=== PATIENT | female | born 1980 | race Caucasian/White ===

== ENCOUNTER → 2020-11-02 | Outpatient (CLI) | payer BC, OTHER ==
[~2020-11-02] MED LIST: AUGMENTIN 875-1 EACH PO; PREDNISONE 10 M10 MG PO
== END ==
LOC: HEART 5 08:00
DX: R42 Dizziness and giddiness (principal); I51.7 Cardiomegaly; I34.0 Nonrheumatic mitral (valve) insufficiency
CPT/HCPCS: 93306

== ENCOUNTER → 2021-06-12 | Outpatient (CLI) | payer BC | LOC: RAD 16:38 | DX: J18.9 Pneumonia, unspecified organism (principal) | CPT/HCPCS: 71046 ==

== ENCOUNTER → 2021-08-29 | Outpatient (CLI) | payer BC | LOC: RAD 16:04 | DX: M53.3 Sacrococcygeal disorders, not elsewhere classified (principal); M54.50 Low back pain, unspecified; M47.816 Spondylosis without myelopathy or radiculopathy, lumbar region | CPT/HCPCS: 72110; 72202 ==

== ENCOUNTER 2021-09-29 17:01 | Inpatient (IN) | payer BC ==
[~2021-09-29] VITALS: Ht 170.2 cm; Wt 145.1 kg
[2021-09-29 18:50] LABS: HEMOGLOBIN 12.3 gm/dl (12.3-15.3); RED BLOOD COUNT 4.87 M/UL (4.00-5.10); WHITE BLOOD COUNT 4.2 K/UL (4.5-11.0)
[2021-09-29 19:19] LABS: BUN/CREATININE RATIO 12 (0-10)
[2021-09-30 07:13] LABS: HEMOGLOBIN 11.5 gm/dl (12.3-15.3); RED BLOOD COUNT 4.57 M/UL (4.00-5.10)
[2021-09-30 08:35] LABS: BUN/CREATININE RATIO 14 (0-10)
[2021-09-30] MEDS ORDERED: ALBUTEROL2.5 MG/3 M INH (10:27)
[2021-09-30] MEDS ORDERED: PROAIR HFA8.5 GM INH (10:27)
[2021-10-02 05:55] LABS: BUN/CREATININE RATIO 20 (0-10)
--- NOTE | 2021-10-02 14:39 | NUR ---
PT'S BEEN OFF HER OXYGEN OVER AN HOUR TOLERATING WELL. SATS 90 TO 93%
[2021-10-02] MEDS ORDERED: DECADRON6 MG PO (15:42)
== END 2021-10-02 19:17 | disposition home or self-care (01) | DRG 177 ==
LOC: ER1 17:01 → MED SURG 4 20:17 → CDU 20:17 → MED SURG 4 21:53
PROVIDERS: Emergency Medicine; Internal Medicine; ADMIT Internal Medicine
PROC: 8E0ZXY6 Isolation (ICD-10-PCS; principal; 2021-09-29)
PROC: XW033E5 Introduction of Remdesivir Anti-infective into Peripheral Vein, Percutaneous Approach, New Technology Group 5 (ICD-10-PCS; 2021-09-29)
PROC: 3E0333Z Introduction of Anti-inflammatory into Peripheral Vein, Percutaneous Approach (ICD-10-PCS; 2021-09-29)
DX: U07.1 COVID-19 (principal); J12.82 Pneumonia due to coronavirus disease 2019; J96.01 Acute respiratory failure with hypoxia; Z68.43 Body mass index [BMI] 50.0-59.9, adult; R74.01 Elevation of levels of liver transaminase levels; E66.01 Morbid (severe) obesity due to excess calories
CPT/HCPCS: 36415; 36600; 71045; 76705; 80048; 80053; 81001; 82550; 82553; 82803; 83605; 83735; 83880; 84484; 85025; 85379; 87040; 87086; 93005; 96374; 99285; J0248; J0456; J1100; J1650; J2405; J7030

== ENCOUNTER 2021-10-10 23:06 | Emergency (ER) | payer BC ==
[~2021-10-10 23:06] MED LIST changes: +ALBUTEROL2.5 MG/3 M INH; +DECADRON6 MG PO; +PROAIR HFA8.5 GM INH
[2021-10-11 01:05] LABS: HEMOGLOBIN 13.6 gm/dl (12.3-15.3); RED BLOOD COUNT 5.11 M/UL (4.00-5.10); WHITE BLOOD COUNT 14.4 K/UL (4.5-11.0)
[2021-10-11 02:01] LABS: BUN/CREATININE RATIO 23 (0-10)
[2021-10-11] MEDS ORDERED: OMNICEF 300 MG300 MG PO (05:45)
== END 2021-10-11 05:55 | disposition home or self-care (01) ==
LOC: ER1 23:06
PROVIDERS: Physician Assistant
DX: N39.0 Urinary tract infection, site not specified (principal); R51.9 Headache, unspecified; R41.0 Disorientation, unspecified
CPT/HCPCS: 70496; 70498; 71045; 80053; 80307; 81001; 82550; 82553; 83874; 83880; 84484; 84703; 85025; 85610; 85730; 87077; 87086; 87186; 96374; 96375; 99285; J0780; J1885; Q9967

== ENCOUNTER → 2021-11-27 | Outpatient (CLI) | payer BC ==
[~2021-11-27] MED LIST changes: +OMNICEF 300 MG300 MG PO
== END ==
LOC: HEART 5 13:30
DX: R00.0 Tachycardia, unspecified (principal)

== ENCOUNTER → 2022-04-13 | Outpatient (CLI) | payer BC | LOC: RAD 16:41 | DX: M54.50 Low back pain, unspecified (principal); M53.3 Sacrococcygeal disorders, not elsewhere classified; M47.816 Spondylosis without myelopathy or radiculopathy, lumbar region | CPT/HCPCS: 72110; 72202 ==